=== PATIENT | male | born 1945 | race African-American/Black ===

== ENCOUNTER 2022-07-26 11:41 | Inpatient (IN) | payer MEDICARE, OTHER ==
[~2022-07-26] VITALS: Ht 188 cm; Wt 83.0 kg
[~2022-07-26 11:41] MED LIST: ACET1TAB14 PO; KEPP500 PO; POTA10TA15 PO; SULF500T8 PO
[2022-07-26] MEDS ORDERED: PANTOPRAZOLE SODIUM 40 MG/VIAL IV STA (12:26)
[2022-07-26] MEDS ORDERED: SODIUM CHLORIDE 0.9% 1,000 ML IV ONE (12:30)
[2022-07-26] MEDS ORDERED: TRANEXAMIC ACID 1,000 MG/10 ML IV ONE (12:30)
[2022-07-26] MEDS ORDERED: ONDANSETRON HCL 4MG/2ML INJ IV ONE (12:30)
[2022-07-26] MEDS ORDERED: TRANEXAMIC ACID 1,000 MG/10 ML IV NR (13:45)
[2022-07-26 14:28] LABS: HEMATOCRIT. 33.8 % (42.0-52.0); MEAN CORPUSCULAR HEMOGLOBIN 27.3 pg (28.0-32.0); MEAN CORPUSCULAR VOLUME 83.9 fL (80.0-94.0); MEAN PLATELET VOLUME 7.8 fl (7.4-10.4); PLATELET 199 x1000/uL (130-400); RED BLOOD CELL COUNT 4.03 mill/uL (4.7-6.1); RED CELL DISTRIBUTION WIDTH 17.3 % (11.6-14.6)
[2022-07-26 14:35] LABS: PROTHROMBIN TIME 11.1 sec (9.6-11.0)
[2022-07-26 14:49] LABS: CHLORIDE 107 mEq/L (98-107)
[2022-07-26] MEDS: MORPHINE SULFATE 4 MG/ML CPJ (NOT FOR IM USE) IV STA ×2 (16:43→19:09)
[2022-07-26] MEDS: ONDANSETRON HCL 4MG/2ML INJ IV STA ×2 (16:43→19:10)
[2022-07-26] MEDS: PANTOPRAZOLE SODIUM 40 MG/VIAL IV SCH ×2 (16:43→19:09)
[2022-07-26 17:03] LABS: PLATELET ESTIMATE NORMAL
[2022-07-26] MEDS ORDERED: IPRATROPIUM/ALBUTEROL 0.5-3(2.5)MG/3ML NEB HHN PRN (18:00)
[2022-07-26] MEDS ORDERED: DIPHENHYDRAMINE 50MG/ML VIAL IV PRN (18:00)
[2022-07-26] MEDS ORDERED: CLONIDINE 0.1MG TABLET PO PRN (18:00)
[2022-07-26] MEDS ORDERED: ONDANSETRON HCL 4MG/2ML INJ IV PRN (18:00)
[2022-07-26] MEDS: SODIUM CHLORIDE 0.9% 1,000 ML IV SCH (18:00)
[2022-07-26] MEDS ORDERED: DIPHENHYDRAMINE 50MG/ML VIAL IV ONE (19:30)
[2022-07-27] VITALS (11 sets, daily range): BP systolic 97–140; BP diastolic 56–116
[2022-07-27] MEDS ORDERED: METOCLOPRAMIDE HCL 10MG/2ML VIAL IV SCH
[2022-07-27] MEDS ORDERED: MORPHINE SULFATE 4 MG/ML CPJ (NOT FOR IM USE) IV ONE (00:15)
[2022-07-27] MEDS ORDERED: MORPHINE SULFATE 2 MG/ML CPJ (NOT FOR IM USE) IV PRN (06:00)
[2022-07-27] MEDS: SODIUM CHLORIDE 0.9% 1,000 ML IV SCH (06:11)
[2022-07-27 08:29] LABS: INR 1.1; PROTHROMBIN TIME 11.6 sec (9.6-11.0)
[2022-07-27 08:50] LABS: HEMATOCRIT. 30.6 % (42.0-52.0); HEMOGLOBIN. 9.9 g/dL (14.0-18.0); MEAN CORPUSCULAR VOLUME 83.1 fL (80.0-94.0); MEAN PLATELET VOLUME 8.3 fl (7.4-10.4); PLATELET 190 x1000/uL (130-400); RED BLOOD CELL COUNT 3.68 mill/uL (4.7-6.1); RED CELL DISTRIBUTION WIDTH 17.5 % (11.6-14.6)
[2022-07-27 09:37] LABS: CHLORIDE 114 mEq/L (98-107)
[2022-07-27] MEDS ORDERED: MORPHINE SULFATE 4 MG/ML CPJ (NOT FOR IM USE) IV NR (11:00)
[2022-07-27] MEDS ORDERED: POTASSIUM CHLORIDE INJ 40 MEQ in DEXT 5% WATER 250 ML IV NR (12:30)
[2022-07-27 13:39] LABS: PLATELET ESTIMATE NORMAL
[2022-07-27] MEDS ORDERED: PROPOFOL 200MG/20ML VIAL IV ONE (13:41)
[2022-07-27] MEDS ORDERED: MIDAZOLAM HCL 2 MG/2 ML VIAL ONE (13:41)
[2022-07-27] MEDS ORDERED: HYDROCODONE/ACETAMINOPHEN 10/325MG TABLET PO NR (15:45)
[2022-07-27] MEDS ORDERED: NALOXONE HCL 0.4MG/ML VIAL IV PRN (16:00)
[2022-07-27] MEDS: HYDROCODONE/ACETAMINOPHEN 5/325MG TABLET PO PRN ×2 (16:07)
[2022-07-27] MEDS ORDERED: POTASSIUM CHLORIDE 20MEQ/PACKET PO NR (16:15)
[2022-07-27] MEDS: PANTOPRAZOLE SODIUM 40 MG/VIAL IV SCH (17:00)
[2022-07-27] MEDS: HYDROCODONE/ACETAMINOPHEN 10/325MG TABLET PO PRN (21:11)
[2022-07-27] MEDS ORDERED: POTASSIUM CHLORIDE 20MEQ TABLET SR PO NR (22:45)
[2022-07-28] VITALS (11 sets, daily range): BP systolic 87–133; BP diastolic 47–101
[2022-07-28 03:30] LABS: HEMATOCRIT. 25.3 % (42.0-52.0); HEMOGLOBIN. 8.3 g/dL (14.0-18.0); MEAN CORPUSCULAR VOLUME 82.5 fL (80.0-94.0); MEAN PLATELET VOLUME 8.2 fl (7.4-10.4); PLATELET 160 x1000/uL (130-400); RED BLOOD CELL COUNT 3.06 mill/uL (4.7-6.1); RED CELL DISTRIBUTION WIDTH 17.3 % (11.6-14.6)
[2022-07-28 03:36] LABS: INR 1.1; PROTHROMBIN TIME 11.4 sec (9.6-11.0)
[2022-07-28 03:38] LABS: CHLORIDE 111 mEq/L (98-107)
[2022-07-28 04:14] LABS: PLATELET ESTIMATE NORMAL
[2022-07-28] MEDS ORDERED: LIDOCAINE HCL 1% 30ML VIAL (10MG/ML) ONE (07:24)
[2022-07-28] MEDS: MORPHINE SULFATE 2 MG/ML CPJ (NOT FOR IM USE) IV PRN ×2 (09:22→20:39)
[2022-07-28] MEDS: PANTOPRAZOLE SODIUM 40 MG/VIAL IV SCH ×2 (09:22→18:02)
[2022-07-28] MEDS: SODIUM CHLORIDE 0.9% 1,000 ML IV SCH (09:24)
[2022-07-28] MEDS ORDERED: LIDOCAINE HCL 1% 50ML VIAL (10MG/ML) ONE (10:08)
[2022-07-28] MEDS ORDERED: PROPOFOL 200MG/20ML VIAL IV ONE (10:08)
[2022-07-28] MEDS ORDERED: MIDAZOLAM HCL 2 MG/2 ML VIAL ONE (10:08)
[2022-07-28] MEDS ORDERED: PHENYLEPHRINE HCL 10 MG/ML 1ML (IV VIAL) IV ONE (10:09)
[2022-07-28] MEDS ORDERED: EPHEDRINE SULFATE 50MG/ML VIAL ONE (10:09)
[2022-07-28] MEDS ORDERED: MORPHINE SULFATE 2 MG/ML CPJ (NOT FOR IM USE) IV SCH (10:30)
[2022-07-28] MEDS ORDERED: LEVETIRACETAM 500 MG in SODIUM CHLORIDE 0.9% 100 ML IV SCH (10:30)
[2022-07-28] MEDS: LEVOFLOXACIN 500MG TABLET PO SCH (11:00)
[2022-07-28] MEDS ORDERED: GLYCOPYRROLATE 0.2 MG/ML 2ML VIAL ONE (11:17)
[2022-07-28] MEDS: LEVETIRACETAM 500MG PREMIX 100 ML IV SCH ×2 (14:08→20:14)
[2022-07-28] MEDS ORDERED: SULFASALAZINE 500MG TABLET PO SCH (17:00)
[2022-07-28] MEDS ORDERED: TAMS-11 PO (17:04)
[2022-07-28] MEDS: TAMSULOSIN HCL 0.4MG SR CAPSULE PO SCH (20:24)
[2022-07-28] MEDS: SULFASALAZINE 500MG TABLET PO SCH (20:40)
[2022-07-29] VITALS (11 sets, daily range): BP systolic 88–124; BP diastolic 47–68
[2022-07-29 07:48] LABS: BASOPHILS % 0.6 % (0.0-2.0); HEMATOCRIT. 25.6 % (42.0-52.0); HEMOGLOBIN. 8.3 g/dL (14.0-18.0); LYMPHOCYTES % 14.4 % (20.0-50.0); MEAN CORPUSCULAR HEMOGLOBIN 27.4 pg (28.0-32.0); MEAN CORPUSCULAR VOLUME 84.3 fL (80.0-94.0); MEAN PLATELET VOLUME 8.7 fl (7.4-10.4); MONOCYTES % 12.3 % (2.0-8.0); NEUTROPHILS % 69.7 % (40.0-76.0); PLATELET 107 x1000/uL (130-400); RED BLOOD CELL COUNT 3.04 mill/uL (4.7-6.1); RED CELL DISTRIBUTION WIDTH 17.5 % (11.6-14.6)
[2022-07-29 07:56] LABS: CHLORIDE 111 mEq/L (98-107)
[2022-07-29] MEDS: SULFASALAZINE 500MG TABLET PO SCH ×4 (08:40→20:03)
[2022-07-29] MEDS: PANTOPRAZOLE SODIUM 40 MG/VIAL IV SCH ×2 (08:41→17:02)
[2022-07-29] MEDS: HYDROCODONE/ACETAMINOPHEN 10/325MG TABLET PO PRN (08:41)
[2022-07-29] MEDS: SODIUM CHLORIDE 0.9% 1,000 ML IV SCH ×2 (08:42→20:03)
[2022-07-29] MEDS: LEVETIRACETAM 500MG PREMIX 100 ML IV SCH ×2 (08:42→20:03)
[2022-07-29] MEDS ORDERED: POTASSIUM CHLORIDE INJ 40 MEQ in DEXT 5% WATER 250 ML IV NR (10:00)
[2022-07-29] MEDS: LEVOFLOXACIN 500MG TABLET PO SCH (11:54)
[2022-07-29] MEDS: ACETAMINOPHEN WITH CODEINE 300/60MG TABLET PO SCH ×2 (13:36→20:04)
[2022-07-29] MEDS: TAMSULOSIN HCL 0.4MG SR CAPSULE PO SCH (20:03)
[2022-07-30] VITALS: BP 80/45
[2022-07-30 04:00] VITALS: BP 91/50
[2022-07-30 08:00] VITALS: BP 98/65
[2022-07-30] MEDS: LEVETIRACETAM 500MG TABLET PO SCH ×2 (09:02→16:43)
[2022-07-30] MEDS: SULFASALAZINE 500MG TABLET PO SCH ×4 (09:02→20:49)
[2022-07-30] MEDS: ACETAMINOPHEN WITH CODEINE 300/60MG TABLET PO SCH ×2 (09:04→17:41)
[2022-07-30] MEDS: SODIUM CHLORIDE 0.9% 1,000 ML IV SCH ×2 (09:30→20:50)
[2022-07-30] MEDS: LEVOFLOXACIN 500MG TABLET PO SCH (10:11)
[2022-07-30] MEDS: PANTOPRAZOLE SODIUM 40 MG/VIAL IV SCH ×2 (10:11→16:43)
[2022-07-30 12:00] VITALS: BP 99/69
[2022-07-30] MEDS: SUCRALFATE 1G TABLET PO SCH ×3 (12:24→20:49)
[2022-07-30 15:50] VITALS: BP 133/94
[2022-07-30] MEDS ORDERED: KEPP500 PO (17:42)
[2022-07-30 20:00] VITALS: BP 115/63
[2022-07-30] MEDS: TAMSULOSIN HCL 0.4MG SR CAPSULE PO SCH (20:49)
[2022-07-31] VITALS: BP 96/55
[2022-07-31 04:00] VITALS: BP 98/71
[2022-07-31 08:06] VITALS: BP 107/56
[2022-07-31] MEDS: PANTOPRAZOLE SODIUM 40 MG/VIAL IV SCH (08:57)
[2022-07-31] MEDS: LEVETIRACETAM 500MG TABLET PO SCH (08:58)
[2022-07-31] MEDS: SUCRALFATE 1G TABLET PO SCH ×2 (08:58→13:12)
[2022-07-31] MEDS: SULFASALAZINE 500MG TABLET PO SCH ×2 (08:59→13:12)
[2022-07-31] MEDS: ACETAMINOPHEN WITH CODEINE 300/60MG TABLET PO SCH (08:59)
[2022-07-31 10:00] VITALS: BP 125/58
[2022-07-31] MEDS: SODIUM CHLORIDE 0.9% 1,000 ML IV SCH (10:30)
[2022-07-31] MEDS ORDERED: SUCR1TAB30 MT (10:51)
[2022-07-31] MEDS ORDERED: PANT40TA51 MT (10:51)
[2022-07-31 11:43] VITALS: BP 108/63
[2022-07-31 12:06] VITALS: BP 121/66
[2022-07-31] MEDS: LEVOFLOXACIN 500MG TABLET PO SCH (13:12)
== END 2022-07-31 14:21 | disposition home or self-care (01) | DRG 386 ==
LOC: ER 11:41 → EDBEDREQTM 14:42 → MICUSO 16:37 → EDBEDREQ 16:49 → EDBEDREQTM 16:49 → ENRESERV 07-27 00:03 → 5EST 07-27 03:37
PROVIDERS: ADMIT Internal Medicine; ATTEND Internal Medicine
PROC: 0D9670Z Drainage of Stomach with Drainage Device, Via Natural or Artificial Opening (ICD-10-PCS; 2022-07-26)
PROC: 0DB68ZX Excision of Stomach, Via Natural or Artificial Opening Endoscopic, Diagnostic (ICD-10-PCS; principal; 2022-07-28)
PROC: 05HY33Z Insertion of Infusion Device into Upper Vein, Percutaneous Approach (ICD-10-PCS; 2022-07-28)
DX: K50.918 Crohn's disease, unspecified, with other complication (principal); K22.10 Ulcer of esophagus without bleeding; K92.2 Gastrointestinal hemorrhage, unspecified; K29.50 Unspecified chronic gastritis without bleeding; K29.80 Duodenitis without bleeding; G40.909 Epilepsy, unspecified, not intractable, without status epilepticus; Z20.822 Contact with and (suspected) exposure to COVID-19; G89.29 Other chronic pain; K44.9 Diaphragmatic hernia without obstruction or gangrene; D50.0 Iron deficiency anemia secondary to blood loss (chronic); J44.9 Chronic obstructive pulmonary disease, unspecified; D50.9 Iron deficiency anemia, unspecified; Z96.641 Presence of right artificial hip joint; Z79.899 Other long term (current) drug therapy; Z90.49 Acquired absence of other specified parts of digestive tract; Z87.19 Personal history of other diseases of the digestive system; Z87.891 Personal history of nicotine dependence
CPT/HCPCS: 36415; 36573; 71045; 72148; 80048; 80053; 84484; 85018; 85025; 86850; 86900; 87426; 88305; 93005; 93970; 97162; 97166; 99291; A6261; C1725; C9113; C9803; J1953; J2250; J2270; J2370; J2405; J2704; J3480; J3490; J7030; J7060

== ENCOUNTER 2022-10-26 15:11 | Inpatient (IN) | payer OTHER ==
[~2022-10-26] VITALS: Ht 193 cm; Wt 67.7 kg
[~2022-10-26 15:11] MED LIST changes: +PANT40TA51 MT; +SUCR1TAB30 MT; +TAMS-11 PO
[2022-10-26] MEDS ORDERED: MORPHINE SULFATE 4 MG/ML CPJ (NOT FOR IM USE) IV ONE (23:15)
[2022-10-26] MEDS ORDERED: ONDANSETRON HCL 4MG/2ML INJ IV ONE (23:15)
[2022-10-26 23:16] LABS: BASOPHILS % 0.4 % (0.0-2.0); EOSINOPHILS % 2.7 % (0.0-5.0); HEMATOCRIT. 31.7 % (42.0-52.0); HEMOGLOBIN. 10.2 g/dL (14.0-18.0); LYMPHOCYTES % 25.2 % (20.0-50.0); MEAN CORPUSCULAR HEMOGLOBIN 27.3 pg (28.0-32.0); MEAN CORPUSCULAR VOLUME 84.4 fL (80.0-94.0); MEAN PLATELET VOLUME 7.4 fl (7.4-10.4); MONOCYTES % 8.9 % (2.0-8.0); NEUTROPHILS % 62.8 % (40.0-76.0); PLATELET 211 x1000/uL (130-400); RED BLOOD CELL COUNT 3.75 mill/uL (4.7-6.1); RED CELL DISTRIBUTION WIDTH 18.8 % (11.6-14.6)
[2022-10-26 23:21] LABS: CHLORIDE 109 mEq/L (98-107)
[2022-10-26 23:32] LABS: ETHANOL BLOOD < 10 mg/dL
[2022-10-26] MEDS ORDERED: SODIUM CHLORIDE 0.9% 1,000 ML IV ONE (23:45)
[2022-10-26 23:58] LABS: VITAMIN B12 SERUM 922 pg/mL (211-911)
[2022-10-27] MEDS ORDERED: MORPHINE SULFATE 4 MG/ML CPJ (NOT FOR IM USE) IV NR (01:45)
[2022-10-27] MEDS ORDERED: ONDANSETRON HCL 4MG/2ML INJ IV NR (01:45)
[2022-10-27 01:57] LABS: CLARITY URINE CLOUDY (CLEAR); COLOR URINE YELLOW (YELLOW); KETONES URINE NEGATIVE (NEGATIVE); LEUKOCYTE ESTERASE URINE 3+ (NEGATIVE); NITRITE URINE POSITIVE (NEGATIVE); OCCULT BLOOD URINE TRACE (NEGATIVE); PROTEIN URINE TRACE (NEGATIVE); SPECIFIC GRAVITY URINE 1.015 (1.005-1.030); UROBILINOGEN URINE 0.2 E.U./dL (0.2-1.0)
[2022-10-27 02:13] LABS: *AMPHETAMINES SCREEN URINE NEGATIVE (NEGATIVE); *BARBITURATES SCREEN URINE NEGATIVE (NEGATIVE); *BENZODIAZEPINES SCREEN URINE NEGATIVE (NEGATIVE); *COCAINE SCREEN URINE NEGATIVE (NEGATIVE); CANNABINOID URINE SCREEN NEGATIVE (NEGATIVE); METHADONE URINE SCREEN NEGATIVE (NEGATIVE); OPIATES URINE SCREEN PRESUMTIVE POSITIVE (NEGATIVE); PHENCYCLIDINE URINE SCREEN NEGATIVE (NEGATIVE)
[2022-10-27] MEDS ORDERED: CEFTRIAXONE 1 G PREMIX 50 ML IV ONE (02:15)
[2022-10-27] MEDS ORDERED: PREDNISONE 20MG TABLET PO ONE (02:45)
[2022-10-27] MEDS ORDERED: IOHEXOL-300 100 ML BOTTLE ONE (06:03)
[2022-10-27] MEDS ORDERED: ONDANSETRON HCL 4MG/2ML INJ IV PRN (10:15)
[2022-10-27] MEDS ORDERED: NALOXONE HCL 0.4MG/ML VIAL IV PRN (10:15)
[2022-10-27] MEDS: HYDROCODONE/ACETAMINOPHEN 5/325MG TABLET PO PRN ×2 (10:43→16:46)
[2022-10-27] MEDS ORDERED: PIPERACILLIN/TAZ 3.375G PREMIX 50 ML IV NR (11:00)
[2022-10-27] MEDS: PANTOPRAZOLE SODIUM 40 MG/VIAL IV SCH (16:47)
[2022-10-27] MEDS ORDERED: SULFASALAZINE 500MG TABLET PO SCH (17:00)
[2022-10-27] MEDS ORDERED: ACETAMINOPHEN WITH CODEINE 300/30MG TABLET PO PRN (17:30)
[2022-10-27] MEDS ORDERED: MAGNESIUM/ALUMINUM HYDROXIDE/SIMETHICONE 30ML UDC PO PRN (17:30)
[2022-10-27] MEDS ORDERED: POTASSIUM CHLORIDE 20MEQ TABLET SR PO PRN (17:30)
[2022-10-27] MEDS: SULFASALAZINE 500MG TABLET PO SCH ×2 (18:19→22:01)
[2022-10-27 21:00] VITALS: BP 138/70
[2022-10-27 21:20] VITALS: BP 138/70
[2022-10-27] MEDS: ACETAMINOPHEN WITH CODEINE 300/60MG TABLET PO PRN (21:42)
[2022-10-27] MEDS: LEVETIRACETAM 500MG TABLET PO SCH (21:42)
[2022-10-27] MEDS: GABAPENTIN 300MG CAPSULE PO SCH (21:42)
[2022-10-27] MEDS: METHYLPREDNISOLONE SOD SUCC 40 MG/ML VIAL IV SCH (21:43)
[2022-10-27] MEDS: PIPERACILLIN/TAZOBACTAM 3.375 G in DEXTROSE 5% WATER 50 ML IV SCH (22:14)
[2022-10-28] VITALS (8 sets, daily range): BP systolic 102–113; BP diastolic 64–76
[2022-10-28] MEDS: METHYLPREDNISOLONE SOD SUCC 40 MG/ML VIAL IV SCH ×2 (05:36→14:26)
[2022-10-28] MEDS: PIPERACILLIN/TAZOBACTAM 3.375 G in DEXTROSE 5% WATER 50 ML IV SCH (05:36)
[2022-10-28 08:40] LABS: BASOPHILS % 0.1 % (0.0-2.0); EOSINOPHILS % 0.1 % (0.0-5.0); HEMATOCRIT. 29.6 % (42.0-52.0); HEMOGLOBIN. 9.7 g/dL (14.0-18.0); LYMPHOCYTES % 11.5 % (20.0-50.0); MEAN CORPUSCULAR HEMOGLOBIN 27.3 pg (28.0-32.0); MEAN CORPUSCULAR VOLUME 83.6 fL (80.0-94.0); MEAN PLATELET VOLUME 8.1 fl (7.4-10.4); MONOCYTES % 4.5 % (2.0-8.0); NEUTROPHILS % 83.8 % (40.0-76.0); PLATELET 197 x1000/uL (130-400); RED BLOOD CELL COUNT 3.55 mill/uL (4.7-6.1); RED CELL DISTRIBUTION WIDTH 18.5 % (11.6-14.6)
[2022-10-28 09:11] LABS: CHLORIDE 110 mEq/L (98-107)
[2022-10-28] MEDS: PANTOPRAZOLE SODIUM 40 MG/VIAL IV SCH (09:19)
[2022-10-28] MEDS: CALCIUM 1250MG TABLET (500MG ELEMENTAL CALCIUM) PO SCH (09:19)
[2022-10-28] MEDS: FISH OIL/OMEGA-3 FATTY ACIDS 1000MG CAPSULE PO SCH (09:20)
[2022-10-28] MEDS: GABAPENTIN 300MG CAPSULE PO SCH ×3 (09:20→20:42)
[2022-10-28] MEDS: LEVETIRACETAM 500MG TABLET PO SCH ×2 (09:20→20:42)
[2022-10-28] MEDS: TAMSULOSIN HCL 0.4MG SR CAPSULE PO SCH (09:20)
[2022-10-28] MEDS: CHOLECALCIFEROL (D3) 1000 UNIT TABLET PO SCH (09:20)
[2022-10-28] MEDS: MULTIVITAMINS,THER W-MINERALS TABLET PO SCH (09:20)
[2022-10-28] MEDS: ASCORBIC ACID 250 MG TABLET PO SCH (09:21)
[2022-10-28] MEDS: SULFASALAZINE 500MG TABLET PO SCH ×4 (09:21→20:41)
[2022-10-28] MEDS: ACETAMINOPHEN WITH CODEINE 300/60MG TABLET PO PRN (09:49)
[2022-10-28] MEDS: HYDROCODONE/ACETAMINOPHEN 5/325MG TABLET PO PRN (14:51)
[2022-10-28] MEDS ORDERED: PIPERACILLIN/TAZOBACTAM 3.375 G in DEXTROSE 5% WATER 50 ML IV SCH (15:00)
[2022-10-28] MEDS ORDERED: ACETAMINOPHEN WITH CODEINE 300/60MG TABLET PO NR (16:30)
[2022-10-29] VITALS (8 sets, daily range): BP systolic 92–108; BP diastolic 57–69
[2022-10-29] MEDS: GABAPENTIN 300MG CAPSULE PO SCH ×3 (06:00→21:05)
[2022-10-29] MEDS: PANTOPRAZOLE SODIUM 40 MG/VIAL IV SCH ×2 (09:25→09:37)
[2022-10-29] MEDS: TAMSULOSIN HCL 0.4MG SR CAPSULE PO SCH (09:26)
[2022-10-29] MEDS: SULFASALAZINE 500MG TABLET PO SCH ×4 (09:26→21:06)
[2022-10-29] MEDS: LEVETIRACETAM 500MG TABLET PO SCH ×2 (09:27→21:05)
[2022-10-29] MEDS: FISH OIL/OMEGA-3 FATTY ACIDS 1000MG CAPSULE PO SCH (09:27)
[2022-10-29] MEDS: CALCIUM 1250MG TABLET (500MG ELEMENTAL CALCIUM) PO SCH (09:28)
[2022-10-29] MEDS: MULTIVITAMINS,THER W-MINERALS TABLET PO SCH (09:28)
[2022-10-29] MEDS: PREDNISONE 20MG TABLET PO SCH (09:30)
[2022-10-29] MEDS: ASCORBIC ACID 250 MG TABLET PO SCH (09:31)
[2022-10-29] MEDS: CHOLECALCIFEROL (D3) 1000 UNIT TABLET PO SCH (09:31)
[2022-10-29] MEDS: ACETAMINOPHEN WITH CODEINE 300/60MG TABLET PO PRN ×2 (10:01→17:33)
[2022-10-29] MEDS: HYDROCODONE/ACETAMINOPHEN 5/325MG TABLET PO PRN (14:09)
[2022-10-29] MEDS ORDERED: LEVO-65 MT (14:11)
[2022-10-29] MEDS ORDERED: LEVOFLOXACIN 500MG TABLET PO SCH (21:00)
[2022-10-30] VITALS: BP 108/64
[2022-10-30 04:00] VITALS: BP 116/54
[2022-10-30 08:00] VITALS: BP 121/72
[2022-10-30] MEDS: MULTIVITAMINS,THER W-MINERALS TABLET PO SCH (08:34)
[2022-10-30] MEDS: GABAPENTIN 300MG CAPSULE PO SCH (08:35)
[2022-10-30] MEDS: PREDNISONE 20MG TABLET PO SCH (08:35)
[2022-10-30] MEDS: SULFASALAZINE 500MG TABLET PO SCH (08:35)
[2022-10-30] MEDS: ACETAMINOPHEN WITH CODEINE 300/60MG TABLET PO PRN (08:36)
[2022-10-30] MEDS: FISH OIL/OMEGA-3 FATTY ACIDS 1000MG CAPSULE PO SCH (08:37)
[2022-10-30] MEDS: TAMSULOSIN HCL 0.4MG SR CAPSULE PO SCH (08:37)
[2022-10-30] MEDS: CALCIUM 1250MG TABLET (500MG ELEMENTAL CALCIUM) PO SCH (08:37)
[2022-10-30] MEDS: CHOLECALCIFEROL (D3) 1000 UNIT TABLET PO SCH (08:37)
[2022-10-30] MEDS: LEVETIRACETAM 500MG TABLET PO SCH (08:38)
[2022-10-30] MEDS: ASCORBIC ACID 250 MG TABLET PO SCH (08:38)
[2022-10-30 12:00] VITALS: BP 102/61
== END 2022-10-30 12:30 | disposition home or self-care (01) | DRG 386 ==
LOC: ER 15:11 → 8WST 10-27 08:29 → EDBEDREQTM 10-27 08:34 → EDBEDREQ 10-27 08:34 → EDBEDREQSVC 10-27 08:34
PROVIDERS: ADMIT Internal Medicine; ATTEND Internal Medicine
DX: K50.90 Crohn's disease, unspecified, without complications (principal); E44.0 Moderate protein-calorie malnutrition; N39.0 Urinary tract infection, site not specified; Z68.1 Body mass index [BMI] 19.9 or less, adult; G44.209 Tension-type headache, unspecified, not intractable; D64.9 Anemia, unspecified; Z20.822 Contact with and (suspected) exposure to COVID-19; D72.819 Decreased white blood cell count, unspecified; G89.29 Other chronic pain; N20.0 Calculus of kidney; N26.1 Atrophy of kidney (terminal); Z96.641 Presence of right artificial hip joint; K44.9 Diaphragmatic hernia without obstruction or gangrene; K29.50 Unspecified chronic gastritis without bleeding; Z90.49 Acquired absence of other specified parts of digestive tract; Z87.19 Personal history of other diseases of the digestive system; G40.909 Epilepsy, unspecified, not intractable, without status epilepticus
CPT/HCPCS: 36415; 71045; 74177; 80048; 80053; 80305; 80320; 81003; 82270; 82607; 83605; 83880; 84484; 85025; 86850; 86900; 87015; 87045; 87426; 87427; 87449; 87493; 93005; 93971; 96361; 96365; 96366; 96375; 97162; 99285; C1893; C9113; J0696; J2270; J2405; J2543; J2920; J7030; J7060; J7512; Q9967; G0480